=== PATIENT | female | born 1945 | race Asian ===

== ENCOUNTER 2020-01-19 09:47 | Outpatient (CLI) | payer BC, SELFPAY ==
--- NOTE | 2020-01-19 11:00 | NEURO_ITS ---
Patient Number: [id number] Impression: # Complains of numbness. # Normal nerve conduction study. # No Carpal Tunnel Syndrome or ulnar neuropathy. # Normal needle/EMG exam. Nerve Conduction Studies Anti Sensory Summary Table Stim Site NR Peak (ms) P-T Amp (?V) Site1 Site2 Delta-P (ms) Dist (cm) Marco (m/s) Left Median Anti Sensory (2-3nd Digit) Wrist 2.8 29.6 Wrist 2-3nd Digit 2.8 14.0 50 Wrist 2.8 36.7 Wrist 2-3nd Digit 2.8 14.0 50 Right Median Anti Sensory (2-3nd Digit) Wrist 3.4 28.0 Wrist 2-3nd Digit 3.4 14.0 41 Wrist 3.2 31.0 Wrist 2-3nd Digit 3.4 14.0 41 Left Radial Anti Sensory (Base 1st Digit) Wrist 1.9 17.7 Wrist Base 1st Digit 1.9 0.0 Right Radial Anti Sensory (Base 1st Digit) Wrist 2.3 7.9 Wrist Base 1st Digit 2.3 0.0 Left Ulnar Anti Sensory (5th Digit) Wrist 2.4 27.1 Wrist 5th Digit 2.4 14.0 58 Right Ulnar Anti Sensory (5th Digit) Wrist 2.3 27.6 Wrist 5th Digit 2.3 14.0 61 Motor Summary Table Stim Site NR Onset (ms) O-P Amp (mV) Site1 Site2 Delta-0 (ms) Dist (cm) Marco (m/s) Left Median Motor (Abd Poll Brev) Wrist 3.3 3.5 Elbow Wrist 4.4 25.0 57 Elbow 7.7 1.6 Right Median Motor (Abd Poll Brev) Wrist 3.0 4.4 Elbow Wrist 5.8 27.0 47 Elbow 8.8 2.3 Left Ulnar Motor (Abd Dig Minimi) Wrist 2.3 5.1 A Elbow Wrist 4.5 26.0 58 A Elbow 6.8 5.2 Right Ulnar Motor (Abd Dig Minimi) Wrist 2.5 5.5 A Elbow Wrist 4.9 27.0 55 A Elbow 7.4 4.7 F Wave Studies NR F-Lat (ms) L-R F-Lat (ms) Left Median (Mrkrs) (Abd Poll Brev) 28.34 0.88 Right Median (Mrkrs) (Abd Poll Brev) 27.46 0.88 Left Ulnar (Mrkrs) (Abd Dig Min) 26.96 1.11 Right Ulnar (Mrkrs) (Abd Dig Min) 28.07 1.11 EMG Side Muscle Nerve Root Ins Act Fibs Amp Dur Recrt Comment Right 1stDorInt Ulnar C8-T1 Nml Nml Nml Nml Nml Right Ext Indicis Radial (Post Int) C7-8 Nml Nml Nml Nml Nml Right Ext Digitorum Radial (Post Int) C7-8 Nml Nml Nml Nml Nml Right BrachioRad Radial C5-6 Nml Nml Nml Nml Nml Right PronatorTeres Median C6-7 Nml Nml Nml Nml Nml Right Abd Poll Brev Median C8-T1 Nml Nml Nml Nml Nml Left 1stDorInt Ulnar C8-T1 Nml Nml Nml Nml Nml Left Ext Indicis Radial (Post Int) C7-8 Nml Nml Nml Nml Nml Left Ext Digitorum Radial (Post Int) C7-8 Nml Nml Nml Nml Nml Left BrachioRad Radial C5-6 Nml Nml Nml Nml Nml Left PronatorTeres Median C6-7 Nml Nml Nml Nml Nml Left Abd Poll Brev Median C8-T1 Nml Nml Nml Nml Nml MTDD
== END 2020-01-19 09:48 | disposition home or self-care (01) ==
LOC: ANHNEURO 09:53
PROVIDERS: Visit Provider Orthopaedic Surgery
DX: G56.03 Carpal tunnel syndrome, bilateral upper limbs (principal)
CPT/HCPCS: 95886; 95911

== ENCOUNTER 2023-07-16 08:02 | Outpatient (CLI) | payer BC, SELFPAY ==
--- NOTE | ~2023-07-16 | XR_ITS ---
MODIFIED ESOPHAGRAM HISTORY: CVA. TECHNIQUE: Modified barium esophagram was performed by speech pathologist under radiologist fluorosco pic guidance. This was recorded on tape. The exam was reviewed on 07/16/2023 09:18 PORTFOLIO MANAGER. The DAP for this procedure was 1.8 Gycm2. Fluoroscopy time is 2.7 minutes. FINDINGS: Lateral projection of the cervical spine demonstrates normal alignment. During pharyngeal stage there is reduced tongue base retraction with vallecular, piriform sinus and pharyngeal wall re sidue. No evidence for laryngeal penetration or aspiration.. IMPRESSION: 1: Mild residue during pharyngeal stage without laryngeal penetration or aspiration. 2: Please refer to speech pathologist report for additional detail. Reviewed, dictated and finalized at location A. FOLIO MANAGER IMPRESSION: 1: Mild residue during pharyngeal stage without laryngeal penetration or aspira tion. 2: Please refer to speech pathologist report for additional detail.
--- NOTE | 2023-07-16 10:43 | REHSTMBS ---
Assessment and note entered by Kemi Patterson, BAKER HEAD Modified Barium Swallow Evaluation Feeding Type Recommended Oral Food Consistency Soft and Bite Size, Level Liquid Consistency Thin (0) Treatment Recommendations Tongue Base Exercise ST Clinical Summary MODIFIED BARIUM SWALLOW STUDY This patient was seen for a Modified Barium Swallow study to assess his progress and ability to resume oral feedings. He suffered a debilitating CVA on May 16, 2023 resulting in severe dysphagia and need for g-tube feedings for all nutrition and hydration. He was seen at [facility] and then rehab in [place] prior to initiation of Speech Therapy at this facility. He underwent a Modified Barium Swallow study through [facility] on 06/04/23 and was found to have Severe /Profound Oropharyngeal Dysphagia with penetration across multiple consistencies. and risk of aspiration across all consistencies; he was instructed to remain NPO and try VitalStim, neuromuscular electrical stimulation to the throat to assist with increasing the strength of the swallow. Patient was evaluated for outpatient therapy here on June 23 and has received 8 treatments of VitalStim to the throat for strengthening the swallows in order to prevent aspiration. Today the patient was viewed in the lateral position to the level of C5/C6. Patient was presented with 1/2 and then one teaspoon of thin liquid contrast medium, then uncontrolled contrast medium per cup, pudding mixed with semi-solid contrast medium, and then fruit pieces in syrup and donnie cracker pieces coated with the semi- solid mixture. On each presentation, patient elicited quick swallows with adequate pharyngeal clearing, minimal to moderate vallecular remained after each initial swallow however patient cleared throat and used multiple swallows as needed without therapist instruction to clear pooled material. No penetration or aspiration was noted at any time on any amount or consistency. Patient was asked to use head flexion on the first presentation of each new item, preventing penetration, however after demonstrating safe swallows, he was asked to keep head in neutral
--- NOTE | 2023-07-16 10:49 | REHSTMBS ---
Assessment and note entered by Kemi Patterson, DIESEL POWER SHOVEL OPERATOR Modified Barium Swallow Evaluation Feeding Type Recommended Oral Food Consistency Soft and Bite Size, Level Liquid Consistency Thin (0) Treatment Recommendations Tongue Base Exercise ST Clinical Summary MODIFIED BARIUM SWALLOW STUDY This patient was seen for a Modified Barium Swallow study to assess his progress and ability to resume oral feedings. He suffered a debilitating CVA on May 16, 2023 resulting in severe dysphagia and need for g-tube feedings for all nutrition and hydration. He was seen at [facility] and then rehab in [place] prior to initiation of Speech Therapy at this facility. He underwent a Modified Barium Swallow study through [facility] on 06/04/23 and was found to have Severe /Profound Oropharyngeal Dysphagia with penetration across multiple consistencies. and risk of aspiration across all consistencies; he was instructed to remain NPO and try VitalStim, neuromuscular electrical stimulation to the throat to assist with increasing the strength of the swallow. Patient was evaluated for outpatient therapy here on June 23 and has received 8 treatments of VitalStim to the throat for strengthening the swallows in order to prevent aspiration. Today the patient was viewed in the lateral position to the level of C5/C6. Patient was presented with 1/2 and then one teaspoon of thin liquid contrast medium, then uncontrolled contrast medium per cup, pudding mixed with semi-solid contrast medium, and then fruit pieces in syrup and donnie cracker pieces coated with the semi- solid mixture. On each presentation, patient elicited quick swallows with adequate pharyngeal clearing, minimal to moderate vallecular remained after each initial swallow however patient cleared throat and used multiple swallows as needed without therapist instruction to clear pooled material. No penetration or aspiration was noted at any time on any amount or consistency. Patient was asked to use head flexion on the first presentation of each new item, preventing penetration, however after demonstrating safe swallows, he was asked to keep head in neutral
== END 2023-07-16 08:03 | disposition home or self-care (01) ==
LOC: ANHIMG 08:04
PROVIDERS: Visit Provider Internal Medicine
DX: I63.9 Cerebral infarction, unspecified (principal)
CPT/HCPCS: 92611

== ENCOUNTER 2023-08-06 11:00 | Outpatient (RCR) | payer BC, SELFPAY ==
--- NOTE | 2023-06-23 15:29 | STOPEVAL1 ---
Assessment and note entered by Kemi Patterson SUBSTATION OPERATOR CHIEF Evaluation Information Assessment Status Evaluation Reported Pain Level Pain Score 0: Self Report Assessment ST Clinical Summary BEDSIDE SWALLOW EVALUATION AND VOICE EVALUATION This patient was accompanied to this bedside Swallow Evaluation by his , Maria Teresa. 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 He stated that the CVA affected his swallowing but not so much his speech, cognition, and word-finding skills. and patient agreed that in addition to his swallowing issues, his vocal volume was greatly affected but that is improved now. reports that patient was asleep when stroke occurred but when he awakened, he tried to drink water and choked; this precipated a 911 call. He was admitted to [facility] and then [facility], and eventually [facility] [place] through [facility]. Patient reports he failed two Modified Barium Swallow tests but that at his last Modified Barum Swallow study at [place], approximately one week ago, and supposedly was able to drink slurry (honey thick liquid) from a spoon. He did not know for sure if it entered his airway but he remembers that he coughed. He stated that he then went to [facility] for an outpatient swallowing evaluation to begin treatment however that speech pathologist recommended coming to [facility] for swallowing treatment involving VitalStim. Today the patient was given a Bedside Swallow Evaluation and Voice Evaluation. Patient exhibited wet vocal quality on each of three 1/3 teaspoons of honey/moderately thick water in spite of immediate throat clear after each swallow. He then was requested to clear throat two additional times per swallow and after that, his vocal quality was judged to be clear. Patient exibited significantly reduced vocal volume during non- conversational tasks such as sustaining ah sound and counting as high as he could on one breath, however when asked to tell about himself for about a minute, his vocal volume increased with more lively inflection and pitch range. Diadochokinetic rates (rapid repetition of speech sounds) were within normal limits for sound precision however vocal volume for ea
--- NOTE | 2023-06-23 15:30 | OPREHPOC ---
Outpatient Therapy Plan of Care This is a Multidisciplinary Plan of Care that may contain components documented by all disciplines (PT, OT, and ST.) ST Problem 1 ST Problem #[address] Goal 1 Goal Patient will voice and demonstrate good understanding of anatomy and physiology related to swallowing and voice. Target Visit [address] Problem #[address] Goal 1 Goal 1. Patient will complete laryngeal elevation exercises 10 repetitions in order to improve epiglottal inversion and airway protection along with reducing vallecular residue. ST Goal 2 Goal 2. Patient will complete base of tongue retraction exercises 10 repetitions in order to reduce instances of penetration of material into the airway and improve pharyngeal clearing. Target Visit [address] Problem #[address] Goal 1 Goal 3. Patient will complete laryngeal adduction exercises 10 repetitions in order to reduce instances of aspiration. Target Visit 12 ST Goal 2 Goal 4. Patient will receive up to 45 minutes of Vital Stim (neuromuscular electrical stimulation) to the throat at up to 15 mA with no adverse effects in order to increase the strength and safety of the swallow. Target Visit [address] Problem #[address] Goal 1 Goal 5. Patient will complete laryngeal adduction/ strengthening exercises up to 10 repetitions per session in order to improve both vocal quality and volume along with reducing instances of aspiration into the airway.
--- NOTE | 2023-07-16 11:24 | STOPPROG ---
Assessment and note entered by Kemi Patterson BRAKE MACHINE OPERATOR Evaluation Information Assessment Status Progress Assessment ST Clinical Summary PROGRESS NOTE AND TREATMENT SUMMARY Patient has been seen for ten sessions of Speech Therapy focusing on increasing the strength of the swallow using VitalStim, neuromuscular electrical stimulation to the throat and swallowing strengthening exercises. Patient performs exercises all with good strength and loudness. He sustains ah sound and speaks at the conversational levels with good loudness. He is now able to sustain ah sound up to seven seconds (initially, 5 seconds) however he remains inconsistent, sometimes only reaching 5-6 seconds. Patient tolerates up to 45 minutes of VitalStim to 15.0 mA with no adverse effects. He subjectively reports he used to have to clear his throat frequently and even expectorate or suction his own saliva however now he both does not clear his throat as frequently as he used to and he feels he is able to swallow his own saliva. Last session, patient was presented with a semi-solid to soft solid meal of shredded chicken breast and mashed potatoes with excessive gravy to assist with swallowing while completing the VitalStim treatment and he reported that he felt all of the food was swallowed efficiently with no penetration or aspiration. He also reports that he feels he subconsciously clears his throat to prevent penetration whether he needs to or not. The current Modified Barium Swallow study was completed this morning and patient exhibited no penetration or aspiration on any consistency or amount and with and without head flexion. These findings suggest patient's swallowing skills have significantly improved since he had failed a Modified Barium Swallow study earlier on 06/04. Patient expressed that he is convinced that the electrical stimulation and our exercises contributed to the significant improvement. Speech Therapy will continue two more sessions next week for the additional visits ordered for VitalStim; need to continue will be determined at that time. Plan of Care Interventions Treatment of Swallowing D
--- NOTE | 2023-08-06 15:44 | STOPDC ---
Assessment and note entered by Kemi Patterson COMMUNITY REPRESENTATIVE Evaluation Information Assessment Status Discharge Reported Pain Level Pain Score 0: Self Report Assessment ST Clinical Summary TREATMENT SUMMARY AND DISCHARGE SUMMARY Patient has been seen for a total of 17 visits addressing VitalStim in order to improve the strength of the swallow to avoid penetration/ aspiration. Patient was seen for a Modified Barium Swallow that indicated swallowing skills were grossly within normal limits however patient remained concerned about swallowing meats as they have been troublesome, hanging up in his throat and concerned about bread and nuts. Today the patient underwent up to 45 minutes of VitalStim at up to 15.0 mA with assessment of toleration up to 20.0 mA and he voiced no complaints. He completed hard swallowing/resistance exercises with good strength and tolerated at least 1/4 cup of peanuts without signs of aspiration. Patient is discharged this date with all goals achieved and home exercise program in place. Plan of Care ST Services Indicated Yes
== END 2023-08-06 16:16 | disposition home or self-care (01) ==
LOC: ANHST 11:00
PROVIDERS: Visit Provider Internal Medicine
DX: I63.89 Other cerebral infarction (principal)
CPT/HCPCS: 92524; 92526; 92610